=== PATIENT | male | born 2005 | race Two or more races ===

== ENCOUNTER 2024-11-04 17:50 | Emergency (ER) | payer OTHER ==
[~2024-11-04] VITALS: Ht 182.9 cm; Wt 79.4 kg
[2024-11-04] MEDS ORDERED: KETOROLAC TROMETHAMINE 30 MG VIAL IM ONE (19:15)
[2024-11-04] MEDS ORDERED: ORPHENADRINE CITRATE 30 MG/ML AMPUL IM ONE (19:15)
[2024-11-04] MEDS ORDERED: NORFLEX100MG PO (19:30)
[2024-11-04] MEDS ORDERED: DICLOFENAC SODI50 MG PO (19:30)
== END 2024-11-04 20:04 | disposition home or self-care (01) ==
LOC: ER 17:50
DX: M79.605 Pain in left leg (principal)